=== PATIENT | male | born 2000 ===

== ENCOUNTER 2019-05-20 05:51 | Inpatient (IN) ==
[2019-05-20] MEDS ORDERED: DIPH/TET/ACEL PERT BOOSTER VACCINE 0.5 ML VIAL IM ONE (05:55)
[2019-05-20 06:11] LABS: Basophils % 0.2 % (0.0-0.8); Eosinophils % 0.1 % (0.00-10.9); Hematocrit 40.5 VOL% (42.0-52.0); Hemoglobin 14.2 GM/DL (14.0-18.0); Immature Granulocytes % 0.3 %; Immature Granulocytes Absolute 0.04 #; Lymphocytes # 0.9 10*3/uL (1.4-4.0); Lymphocytes % 6.8 % (21.2-54.2); Mean Corpuscular HGB Conc 35.1 GM/DL (32-36); Mean Corpuscular Volume 91.6 FL (87-102); Mean Platelet Volume 9.8 FL (9.6-12.0); Monocytes % 3.6 % (1.7-12.7); Platelet Count 264 T/CUMM (130-400); Red Blood Count 4.42 MC/CUMM (3.8-5.5); Red Cell Distribution Width 12.7 % (9.3-17.3); White Blood Count 13.8 T/CUMM (4-12)
[2019-05-20 06:20] LABS: INR 0.9; Partial Thromboplastin Time 22.6 SECS (20.8-36.0)
[2019-05-20] MEDS ORDERED: SODIUM CHLORIDE 0.9% 1,000 ML IV STA (06:25)
[2019-05-20] MEDS ORDERED: ceFAZolin 1,000 MG VIAL ONE (06:26)
[2019-05-20 06:30] LABS: Alanine Aminotransferase 39 U/L (16-61); Albumin 3.9 G/DL (3.4-5.0); Alkaline Phosphatase 79 U/L (45-117); Aspartate Amino Transferase 24 U/L (0-37); Bilirubin,Total < 0.39 MG/DL (0.2-1.0); Blood Urea Nitrogen 15 MG/DL (7-18); Calcium 8.8 MG/DL (8.5-10.1); Estimated Glom Filtration Rate 131 ML/MIN; Glucose 102 MG/DL (74-106); Osmolality,Calculated 277.5 MOS/KG (273-304); Total Protein 7.1 G/DL (6.4-8.3)
[2019-05-20] MEDS ORDERED: INFLUENZA VIRUS VACCINE 0.5 ML SYRINGE IM ONE (09:29)
[2019-05-20] MEDS ORDERED: ONDANSETRON 4 MG/2 ML VIAL IV PRN (09:55)
[2019-05-20] MEDS ORDERED: ACETAMINOPHEN 325 MG TABLET PO PRN (09:55)
[2019-05-20] MEDS: LACTATED RINGERS 1,000 ML IV SCH ×2 (10:25→19:13)
[2019-05-20] MEDS: PANTOPRAZOLE 40 MG TABLET PO SCH (11:11)
[2019-05-21] MEDS: LACTATED RINGERS 1,000 ML IV SCH ×2 (02:49→12:10)
[2019-05-21 05:47] LABS: Basophils % 0.3 % (0.0-0.8); Eosinophils # 0.1 10*3/uL (0.0-0.87); Eosinophils % 0.6 % (0.00-10.9); Hematocrit 37.6 VOL% (42.0-52.0); Hemoglobin 12.8 GM/DL (14.0-18.0); Immature Granulocytes % 0.3 %; Immature Granulocytes Absolute 0.03 #; Lymphocytes # 1.5 10*3/uL (1.4-4.0); Lymphocytes % 16.4 % (21.2-54.2); Mean Corpuscular Volume 93.5 FL (87-102); Mean Platelet Volume 9.9 FL (9.6-12.0); Monocytes % 7.3 % (1.7-12.7); Neutrophils % 75.1 % (38.7-73.9); Platelet Count 212 T/CUMM (130-400); Red Blood Count 4.02 MC/CUMM (3.8-5.5); Red Cell Distribution Width 12.9 % (9.3-17.3); White Blood Count 9.3 T/CUMM (4-12)
[2019-05-21 06:17] LABS: Albumin 3.4 G/DL (3.4-5.0); Bilirubin,Total 1.6 MG/DL (0.2-1.0); Calcium 8.8 MG/DL (8.5-10.1); Osmolality,Calculated 273.5 MOS/KG (273-304); Total Protein 6.4 G/DL (6.4-8.3)
[2019-05-21] MEDS: PANTOPRAZOLE 40 MG TABLET PO SCH (08:16)
[2019-05-21 15:45] VITALS: BP 135/85
== END 2019-05-21 15:33 | disposition left against medical advice (07) | DRG 965 ==
LOC: EDBD → EDUNIT# → N.ED 05:51 → N.EDINP 07:52 → N.3E 08:15
PROVIDERS: ADMIT Student in an Organized Health Care Education/Training Program; ATTEND Student in an Organized Health Care Education/Training Program